=== PATIENT | female | born 1995 | race Caucasian/White ===

== ENCOUNTER → 2017-03-05 | Outpatient (CLI) | payer BC ==
[2017-03-05 13:28] LABS: BASO % 0.3 % (0.0-1.0); EOS # 0.1 10^3/uL (0.0-0.50); EOS % 0.9 % (0.0-3.0); IMMATURE GRANULOCYTE % 0.1 % (0-0); LYMPH # 1.5 10^3/uL (1.5-6.5); LYMPH % 21.8 % (24.0-44.0); MEAN CORPUSCULAR HEMOGLOBIN 31.8 pg (27.0-33.0); MEAN CORPUSCULAR HGB CONC 34.8 g/dl (32.0-36.5); MEAN CORPUSCULAR VOLUME 91.2 fl (80.0-96.0); MONO # 0.5 10^3/uL (0.0-0.8); MONO % 7.1 % (0.0-5.0); NEUTROPHILS # 4.8 10^3/uL (1.8-7.7); NEUTROPHILS % 69.8 % (36.0-66.0); PLATELET COUNT, AUTOMATED 177 10^3/uL (150-450); RED CELL DISTRIBUTION WIDTH 11.9 % (11.5-14.5); WHITE BLOOD COUNT 6.9 10^3/uL (4.0-10.0)
[2017-03-05 14:21] LABS: HBsAg Prenatal NEGATIVE (NEGATIVE)
== END ==
LOC: M SMT 09:00
PROVIDERS: ATTEND Advanced Practice Midwife
DX: Z3A.10 10 weeks gestation of pregnancy (principal)

== ENCOUNTER → 2017-04-30 | Outpatient (CLI) | payer BC ==
--- NOTE | 2017-04-30 10:24 | REP ---
Obstetric ultrasound for anatomy: There is a single intrauterine gestation in a breech presentation. There is movement. The heart rate is 144 beats per minute. The placenta is anterior. There is no placenta previa or abruptio. Placenta demonstrates grade zero maturity. The amniotic fluid volume subjectively is normal. The cervix measures 3.6 cm in length. Gestational Age: By LMP: 18 w 5.0 d the MARI 09/17/1928 By First US: None By Today's US: 18 w 6.0 d MARI 09/25/2017 Weight: 278 gm/ 0.0 lbs, 9.0 oz Wt% 65 % for 08:18 w 5.0 d The following anatomic structures are identified and are unremarkable: Intracranial lateral ventricles, cerebellum, cisterna magna, cavum septum pellucidum, face, facial profile, lungs, four-chamber heart, cardiac right and left ventricular outflow tracts, diaphragm, stomach, cord insertion, three-vessel cord, kidneys, bladder and upper lower extremities. Suboptimally demonstrated is the spine. There are bilateral choroid plexus cysts measuring approximate 3 mm in diameter. Followup study dedicated to the spine and choroid plexus might be considered. Otherwise, there are no anomalies. Signed by Joe Munoz MD 04/30/2017 10:16 A
== END ==
LOC: M SMT 08:07
PROVIDERS: ATTEND Specialist
DX: Z34.82 Encounter for supervision of other normal pregnancy, second trimester (principal)

== ENCOUNTER → 2017-05-15 | Outpatient (CLI) | payer BC | LOC: M SMT 09:02 | DX: Z34.82 Encounter for supervision of other normal pregnancy, second trimester (principal); Z3A.21 21 weeks gestation of pregnancy | CPT/HCPCS: 76816 ==

== ENCOUNTER → 2017-06-20 | Outpatient (REF) | payer BC | LOC: M LAB REF 17:21 | DX: J02.9 Acute pharyngitis, unspecified (principal) | CPT/HCPCS: 87081 ==

== ENCOUNTER → 2017-06-23 | Outpatient (CLI) | payer BC ==
[2017-06-23 13:33] LABS: HEMATOCRIT 38.4 % (36.0-47.0); MEAN CORPUSCULAR HEMOGLOBIN 32.3 pg (27.0-33.0); MEAN CORPUSCULAR HGB CONC 33.9 g/dl (32.0-36.5); MEAN CORPUSCULAR VOLUME 95.3 fl (80.0-96.0); PLATELET COUNT, AUTOMATED 152 10^3/uL (150-450); RED BLOOD COUNT 4.03 10^6/uL (4.00-5.40); RED CELL DISTRIBUTION WIDTH 12.6 % (11.5-14.5); WHITE BLOOD COUNT 13.5 10^3/uL (4.0-10.0)
[2017-06-23 13:55] LABS: GLUCOSE CHALLENGE TEST 1 HOUR 62 MG/DL (LESS THAN 140)
[2017-06-24 08:52] LABS: TYPE AND SCREEN 1 1
== END ==
LOC: M SMT 08:45
PROVIDERS: Pediatrics
DX: Z34.82 Encounter for supervision of other normal pregnancy, second trimester (principal)
CPT/HCPCS: 82950

== ENCOUNTER → 2017-08-29 | Outpatient (REF) | payer BC | LOC: M LAB REF 17:16 | DX: Z34.83 Encounter for supervision of other normal pregnancy, third trimester (principal) | CPT/HCPCS: 87081 ==

== ENCOUNTER 2017-09-16 04:42 | Inpatient (IN) | payer BC ==
[2017-09-16 05:45] LABS: HEMOGLOBIN 13.4 g/dl (12.0-15.5); MEAN CORPUSCULAR HGB CONC 34.4 g/dl (32.0-36.5); MEAN CORPUSCULAR VOLUME 90.3 fl (80.0-96.0); PLATELET COUNT, AUTOMATED 162 10^3/uL (150-450); RED BLOOD COUNT 4.32 10^6/uL (4.00-5.40); RED CELL DISTRIBUTION WIDTH 13.1 % (11.5-14.5); WHITE BLOOD COUNT 10.9 10^3/uL (4.0-10.0)
[2017-09-16] MEDS: LR 1,000 ML IV ×3 (07:54→19:53)
[2017-09-16] MEDS: OXYTOCIN DRIP 30 UNITS in APPROPRIATE DILUENT 1 EA IV ×2 (07:54→19:53)
[2017-09-16] MEDS ORDERED: FENTANYL 2MCG/ML ROPIVACAINE 0.2% IN 0.9% NACL 200ML IVBAG As Ordered (13:58)
[2017-09-16] MEDS ORDERED: LACTATED RINGER'S 1000 ML IV (15:30)
[2017-09-16] MEDS ORDERED: FENTANYL/ROPIVACAINE/NACL BAG 200 ML EPIDURAL (15:30)
[2017-09-16] MEDS ORDERED: ePHEDrine SULFATE 25 MG/5 ML(5MG/ML) SYRINGE IV (15:30)
[2017-09-16] MEDS ORDERED: diphenhydrAMINE INJ 50MG/ML VIAL (J1200) IV (15:30)
[2017-09-16] MEDS ORDERED: EPIDURAL/PCA KEYS XX (15:30)
[2017-09-16] MEDS ORDERED: ONDANSETRON 4MG/2ML VIAL (J2405) IV ×2 (15:30→17:30)
[2017-09-16] MEDS ORDERED: EPIDURAL COMMENT XX (15:30)
[2017-09-16] MEDS ORDERED: NALOXONE INJ 0.4 MG/1 ML VIAL (J2310) IV (15:30)
[2017-09-16] MEDS ORDERED: REFRIGERATOR IV KEYS XX (15:30)
[2017-09-16] MEDS ORDERED: ACETAMINOPHEN 500 MG TAB PO (17:30)
[2017-09-16] MEDS ORDERED: PROMETHAZINE 25 MG TAB PO (17:30)
[2017-09-17] MEDS: LR 1,000 ML IV (01:24)
[2017-09-17] MEDS: PRENATAL VITAMINS CHEWABLE TABLET PO (07:58)
[2017-09-17] MEDS: DOCUSATE SODIUM 100 MG CAP PO ×2 (07:58→19:51)
[2017-09-17] MEDS: IBUPROFEN 800 MG TAB PO (07:59)
[2017-09-17] MEDS: DIBUCAINE 1% OINTMENT 30GM TOP (19:51)
[2017-09-18] MEDS: MEASLES,MUMPS,RUBELLA VACCINE INJ (MMR-II) (90707) SC (02:26)
[2017-09-18] MEDS: RHOGAM 300 MCG (1500 IU) INJ (J2790) IM (02:26)
[2017-09-18] MEDS: PRENATAL VITAMINS CHEWABLE TABLET PO (07:56)
== END 2017-09-18 13:31 | disposition home or self-care (01) | DRG 560 ==
LOC: M LDO 04:42 → M LDI 05:02 → M OBS 19:01
PROC: 10E0XZZ Delivery of Products of Conception, External Approach (ICD-10-PCS; principal; 2017-09-16)
PROC: 0HQ9XZZ Repair Perineum Skin, External Approach (ICD-10-PCS; 2017-09-16)
DX: O70.0 First degree perineal laceration during delivery (principal); Z37.0 Single live birth; Z3A.38 38 weeks gestation of pregnancy

== ENCOUNTER → 2019-02-12 | Outpatient (CLI) | payer BC ==
[~2019-02-12] MED LIST: IBUP-1114 PO; MAPA500T2 PO; PRENTAB9 PO
[2019-02-12 15:24] LABS: BASO % 0.6 % (0.0-1.0); EOS # 0.1 10^3/uL (0.0-0.5); HEMATOCRIT 43.4 % (36.0-47.0); HEMOGLOBIN 14.5 g/dl (12.0-15.5); LYMPH # 1.6 10^3/uL (1.5-5.0); LYMPH % 29.7 % (24.0-44.0); MEAN CORPUSCULAR HEMOGLOBIN 31.7 pg (27.0-33.0); MEAN CORPUSCULAR HGB CONC 33.4 g/dl (32.0-36.5); MEAN CORPUSCULAR VOLUME 94.8 fl (80.0-96.0); MONO # 0.5 10^3/uL (0.0-0.8); MONO % 9.2 % (0.0-5.0); NEUTROPHILS # 3.1 10^3/uL (1.5-8.5); NEUTROPHILS % 59.3 % (36.0-66.0); PLATELET COUNT, AUTOMATED 159 10^3/uL (150-450); RED BLOOD COUNT 4.58 10^6/uL (4.00-5.40); WHITE BLOOD COUNT 5.2 10^3/uL (4.0-10.0)
[2019-02-12 18:21] LABS: HEPATITIS C VIRUS ABY INDEX 0.1 INDEX (<0.8); HIV 1&2 SCREEN CENTAUR NEGATIVE (NEGATIVE); RUBELLA IgG QUALITATIVE IMMUNE (IMMUNE)
== END ==
LOC: M SMT 09:10
PROVIDERS: ATTEND Advanced Practice Midwife
DX: Z34.81 Encounter for supervision of other normal pregnancy, first trimester (principal); Z3A.00 Weeks of gestation of pregnancy not specified

== ENCOUNTER → 2019-03-12 | Outpatient (REF) | payer BC ==
[2019-03-12 12:58] LABS: CHLAMYDIA DNA AMPLIFICATION NEGATIVE (NEGATIVE); GC DNA AMPLIFICATION NEGATIVE (NEGATIVE)
== END ==
LOC: M LAB REF 10:37
PROVIDERS: ATTEND Advanced Practice Midwife
DX: Z34.81 Encounter for supervision of other normal pregnancy, first trimester (principal)

== ENCOUNTER 2019-03-30 18:26 | Emergency (ER) | payer BC ==
[~2019-03-30] VITALS: Ht 167.6 cm; Wt 61.4 kg
[2019-03-30 19:39] LABS: BASO # 0.1 10^3/uL (0.0-0.2); BASO % 0.5 % (0.0-1.0); EOS # 0.1 10^3/uL (0.0-0.5); EOS % 0.9 % (0.0-3.0); HEMATOCRIT 39.3 % (36.0-47.0); HEMOGLOBIN 13.5 g/dl (12.0-15.5); LYMPH # 2.5 10^3/uL (1.5-5.0); LYMPH % 24.5 % (24.0-44.0); MEAN CORPUSCULAR HEMOGLOBIN 31.5 pg (27.0-33.0); MEAN CORPUSCULAR HGB CONC 34.4 g/dl (32.0-36.5); MEAN CORPUSCULAR VOLUME 91.8 fl (80.0-96.0); MONO # 0.6 10^3/uL (0.0-0.8); MONO % 5.9 % (0.0-5.0); NEUTROPHILS # 6.9 10^3/uL (1.5-8.5); NEUTROPHILS % 67.8 % (36.0-66.0); PLATELET COUNT, AUTOMATED 167 10^3/uL (150-450); RED BLOOD COUNT 4.28 10^6/uL (4.00-5.40); WHITE BLOOD COUNT 10.1 10^3/uL (4.0-10.0)
[2019-03-30 20:20] LABS: BLOOD UREA NITROGEN 10 MG/DL (7-18); CALCIUM LEVEL 8.9 MG/DL (8.5-10.1); CARBON DIOXIDE LEVEL 25 MEQ/L (21-32); CHLORIDE LEVEL 106 MEQ/L (98-107); CREATININE FOR GFR 0.52 MG/DL (0.55-1.30); GLOMERULAR FILTRATION RATE > 60.0 (>60); GLUCOSE, FASTING 85 MG/DL (70-100); HCG, SERUM QUANTITATIVE 38032 MIU/ML; POTASSIUM SERUM 3.8 MEQ/L (3.5-5.1); SODIUM LEVEL 138 MEQ/L (136-145)
--- NOTE | 2019-03-30 21:06 | REPVR ---
PROCEDURE INFORMATION: Exam: US First Trimester, Transabdominal Exam date and time: 03/30/2019 8:19 PM Clinical history: 24 years old, female; Lmp or gestational age (in weeks): 12/20/18; Antepartum complications; Bleeding; ; Additional info: Vaginal bleeding TECHNIQUE: Imaging protocol: Real-time transabdominal obstetrical ultrasound of the maternal pelvis and a first trimester , less than 14 weeks 0 days, with image documentation. COMPARISON: US OBS FOLL UP OR REPEAT EACH GES 06/23/2017 2:59 PM FINDINGS: Single intrauterine in variable presentation. Placenta is left lateral and free of the cervical os. Cervix measures 4.1 cm in length and is closed. cardiac activity is identified with a heart rate of 155 beats/min. Amniotic fluid volume is qualitatively normal. measurements correspond to an estimated gestational age of 15 weeks 1 day. Estimated weight is 111 g . EFW percentile is 71 %. IMPRESSION: Single IUP with measurements corresponding to an EGA of approximately 15 weeks 1 day. No apparent complication explanation for hemorrhage Electronically signed by: Dwaine Martínez On 03/30/2019 21:06:04 PM
[2019-03-30] MEDS ORDERED: RHOGAM 300 MCG (1500 IU) INJ (J2790) IM ONE (21:30)
[2019-03-30 22:20] VITALS: BP 113/63
== END 2019-03-30 22:21 | disposition home or self-care (01) ==
LOC: M ED 18:26
DX: O20.9 Hemorrhage in early pregnancy, unspecified (principal); Z3A.15 15 weeks gestation of pregnancy
CPT/HCPCS: 36415; 76811; 80048; 81001; 84702; 85025; 86850; 86900; 86901; 96372; 99284; J2790

== ENCOUNTER → 2019-06-10 | Outpatient (CLI) | payer BC ==
--- NOTE | 2019-06-11 04:12 | REP ---
Clinical: Anatomical evaluation. Comparison: 03/30/2019 . Findings: Examination demonstrates a single live intrauterine in breech presentation. motion is identified by technologist. Placenta is noted posterior and grade zero without evidence for placenta previa or abruption. Amniotic fluid volume is normal. Cervix measures 3.1 cm in length and appears closed. No evidence for nuchal cord. Gestational age by LMP 24 weeks 4 days with MARI 09/26/2019 . Gestational age by current measurements 24 weeks 0 days with MARI 09/30/2019 . FHR equals 136 beats per minute. Estimated weight 684 grams ( 36th percentile). Anatomical assessment demonstrates normal images of the spine. Impression: Single live intrauterine in breech presentation demonstrating appropriate interval growth.
== END ==
LOC: M WHC 08:00
PROVIDERS: ATTEND Obstetrics & Gynecology
DX: Z36.89 Encounter for other specified antenatal screening (principal); Z3A.24 24 weeks gestation of pregnancy

== ENCOUNTER → 2019-06-28 | Outpatient (CLI) | payer BC ==
[2019-06-28 17:33] LABS: HEMOGLOBIN 13.2 g/dl (12.0-15.5); MEAN CORPUSCULAR HEMOGLOBIN 31.5 pg (27.0-33.0); MEAN CORPUSCULAR HGB CONC 32.2 g/dl (32.0-36.5); MEAN CORPUSCULAR VOLUME 97.9 fl (80.0-96.0); PLATELET COUNT, AUTOMATED 143 10^3/uL (150-450); RED BLOOD COUNT 4.19 10^6/uL (4.00-5.40); WHITE BLOOD COUNT 9.5 10^3/uL (4.0-10.0)
== END ==
LOC: M PLALAB 13:15
PROVIDERS: ATTEND Obstetrics & Gynecology
DX: Z36.89 Encounter for other specified antenatal screening (principal)

== ENCOUNTER → 2019-07-01 | Outpatient (REF) | payer BC | LOC: M LAB REF 12:24 | PROVIDERS: ATTEND Obstetrics & Gynecology | DX: Z34.82 Encounter for supervision of other normal pregnancy, second trimester (principal) ==

== ENCOUNTER → 2019-08-26 | Outpatient (REF) | payer BC | LOC: M LAB REF 12:10 | PROVIDERS: ATTEND Obstetrics & Gynecology | DX: Z34.83 Encounter for supervision of other normal pregnancy, third trimester (principal) ==

== ENCOUNTER 2019-09-17 01:46 | Inpatient (IN) | payer BC ==
[2019-09-17] VITALS (33 sets, daily range): BP systolic 72–124; BP diastolic 38–80
[~2019-09-17] VITALS: Ht 167.6 cm; Wt 82.0 kg
[2019-09-17] MEDS ORDERED: LR 1,000 ML IV SCH (03:03)
[2019-09-17] MEDS ORDERED: LACTATED RINGER'S 1000 ML IV STA (03:03)
[2019-09-17] MEDS ORDERED: PRENTAB9 PO (03:17)
[2019-09-17] MEDS ORDERED: FENTANYL 2MCG/ML ROPIVACAINE 0.2% IN 0.9% NACL 100ML IVBAG As Ordered ONE (03:32)
[2019-09-17 03:35] LABS: HEMATOCRIT 39.6 % (36.0-47.0); HEMOGLOBIN 13.7 g/dl (12.0-15.5); MEAN CORPUSCULAR HEMOGLOBIN 31.3 pg (27.0-33.0); MEAN CORPUSCULAR HGB CONC 34.6 g/dl (32.0-36.5); MEAN CORPUSCULAR VOLUME 90.4 fl (80.0-96.0); PLATELET COUNT, AUTOMATED 139 10^3/uL (150-450); RED BLOOD COUNT 4.38 10^6/uL (4.00-5.40); WHITE BLOOD COUNT 13.8 10^3/uL (4.0-10.0)
[2019-09-17] MEDS ORDERED: OXYTOCIN 30 UNITS IN 0.9% NaCl 500ML IV BAG (J2590) As Ordered ONE (04:27)
[2019-09-17] MEDS ORDERED: diphenhydrAMINE 50MG/ML VIAL (J1200) IV PRN (04:29)
[2019-09-17] MEDS ORDERED: LACTATED RINGER'S 1000 ML IV PRN (04:29)
[2019-09-17] MEDS ORDERED: REFRIGERATOR IV KEYS XX PRN (04:29)
[2019-09-17] MEDS ORDERED: EPIDURAL COMMENT XX SCH (04:29)
[2019-09-17] MEDS ORDERED: NALOXONE INJ 0.4MG/1ML VIAL (J2310 PER 1MG) IV PRN (04:29)
[2019-09-17] MEDS ORDERED: FENTANYL/ROPIVACAINE/NACL BAG 100 ML EPIDURAL SCH (04:29)
[2019-09-17] MEDS ORDERED: ONDANSETRON 4MG/2ML VIAL IV PRN (04:29)
[2019-09-17] MEDS ORDERED: EPIDURAL/PCA KEYS XX PRN (04:29)
[2019-09-17] MEDS: ePHEDrine SULFATE 25 MG/5 ML(5MG/ML) SYRINGE IV PRN ×2 (05:32→06:10)
[2019-09-17] MEDS ORDERED: OXYTOCIN DRIP IV SCH (06:15)
[2019-09-17] MEDS ORDERED: OXYTOCIN DRIP 30 UNITS in IV 1 EA IV SCH ×2 (06:30→07:54)
[2019-09-17 07:34] LABS: CORD GAS ABE V -2.6; CORD GAS HCO3 V 21.6 MEQ/L; CORD GAS O2 SAT V 82.5 %; CORD GAS PH V 7.396 UNITS; CORD GAS PO2 V 38.9 mmHg; CORD GAS TCO2 V 22.7 MEQ/L
[2019-09-17 07:37] LABS: CORD GAS ABE A -0.5; CORD GAS HCO3 A 27.6 MEQ/L; CORD GAS O2 SAT A 22.6 %; CORD GAS PCO2 A 59.2 mmHg; CORD GAS PH A 7.287 UNITS; CORD GAS PO2 A 14.6 mmHg; CORD GAS SBC A 22.1 MEQ/L; CORD GAS TCO2 A 29.5 MEQ/L
[2019-09-17] MEDS ORDERED: MEASLES,MUMPS,RUBELLA VACCINE INJ (MMR-II) (90707) SC SCH (08:00)
[2019-09-17] MEDS ORDERED: DIBUCAINE 1% OINTMENT 30GM TOP PRN (08:00)
[2019-09-17] MEDS ORDERED: IBUPROFEN 800 MG TAB PO PRN (08:00)
[2019-09-17] MEDS ORDERED: ACETAMINOPHEN 500 MG TAB PO PRN (08:00)
[2019-09-17] MEDS ORDERED: DOCUSATE SODIUM 100 MG CAP PO PRN (08:00)
[2019-09-17] MEDS ORDERED: IBUPROFEN 600 MG TAB PO PRN (08:00)
[2019-09-17] MEDS ORDERED: METHYLERGONOVINE MALEATE 0.2 MG TAB PO PRN (08:00)
[2019-09-17] MEDS ORDERED: ANUSOL HC CREAM 30GM TOP PRN (08:00)
[2019-09-17] MEDS ORDERED: ACETAMINOPHEN TAB 650MG DOSE (2X325MG) PO PRN (08:00)
[2019-09-17] MEDS ORDERED: RHOGAM 300 MCG (1500 IU) INJ (J2790) IM SCH (08:00)
[2019-09-17] MEDS: PRENATAL VITAMINS CHEWABLE TABLET PO SCH (09:00)
--- NOTE | 2019-09-17 15:34 | HPE ---
DATE OF ADMISSION: 09/17/2019 Shantell is a 24-year-old female, 2, para 1-0-0-1, who is admitted at 38-4/7 weeks gestation, in active labor. Upon admission no bleeding, no leakage of fluid. Contractions every 3-4 minutes. record reviewed, essentially unremarkable. lab - blood type is A negative, rubella immune, hepatitis negative, HIV negative. GC, chlamydia negative. 1-hour sugar testing was within normal limit. Her GBS is negative. PAST MEDICAL HISTORY: Denies. PAST SURGICAL HISTORY: Denies. SOCIAL HISTORY: She denies any alcohol, drug or cigarette smoking. REVIEW OF SYSTEMS: Unremarkable. FAMILY HISTORY: Significant for ovarian cancer and pulmonary disease. MEDICATIONS: - vitamin ALLERGIES: NO KNOWN DRUG ALLERGY. PHYSICAL EXAMINATION: Normal-appearing female in no acute distress. Abdomen: Soft, nontender, nondistended. Extremities: No clubbing, cyanosis or edema. Vaginal Exam: 6 cm dilated, 100% effaced, fetus at -2 station, vertex position. Tracing reviewed. Category 1 tracing. ASSESSMENT: Intrauterine at 38-4/7 weeks gestation, in active labor. PLAN: Admit to labor and delivery. Routine labs sent. Pain management discussed. The patient opt for an epidural. Will continue to monitor. Anticipate delivery.
[2019-09-18 05:30] VITALS: BP 107/64
[2019-09-18] MEDS: PRENATAL VITAMINS CHEWABLE TABLET PO SCH (07:33)
== END 2019-09-18 19:45 | disposition home or self-care (01) | DRG 560 ==
LOC: M LDO 01:46 → M LDI 03:06 → M OBS 10:12
PROVIDERS: ADMIT Obstetrics & Gynecology; ATTEND Obstetrics & Gynecology
PROC: 10E0XZZ Delivery of Products of Conception, External Approach (ICD-10-PCS; principal; 2019-09-17)
DX: O69.2XX0 Labor and delivery complicated by other cord entanglement, with compression, not applicable or unspecified (principal); Z3A.38 38 weeks gestation of pregnancy; Z37.0 Single live birth

== ENCOUNTER → 2020-10-26 | Outpatient (REF) | payer OTHER ==
[2020-10-26 14:20] LABS: HEMATOCRIT 46.3 % (36.0-47.0); HEMOGLOBIN 15.4 g/dl (12.0-15.5); MEAN CORPUSCULAR HEMOGLOBIN 31.4 pg (27.0-33.0); MEAN CORPUSCULAR HGB CONC 33.3 g/dl (32.0-36.5); MEAN CORPUSCULAR VOLUME 94.5 fl (80.0-96.0); PLATELET COUNT, AUTOMATED 180 10^3/uL (150-450); WHITE BLOOD COUNT 5.7 10^3/uL (4.0-10.0)
[2020-10-26 15:34] LABS: ALBUMIN 4.1 GM/DL (3.2-5.2); ALT/SGPT 16 U/L (12-78); BILIRUBIN,TOTAL 0.7 MG/DL (0.2-1.0); BLOOD UREA NITROGEN 10 MG/DL (7-18); CALCIUM LEVEL 8.7 MG/DL (8.5-10.1); CARBON DIOXIDE LEVEL 26 MEQ/L (21-32); CHLORIDE LEVEL 107 MEQ/L (98-107); CREATININE FOR GFR 0.65 MG/DL (0.55-1.30); FREE T4 1.12 NG/DL (0.76-1.46); GLOMERULAR FILTRATION RATE > 60.0 (>60); GLUCOSE, FASTING 72 MG/DL (70-100); POTASSIUM SERUM 4.4 MEQ/L (3.5-5.1); SODIUM LEVEL 139 MEQ/L (136-145); TOTAL PROTEIN 7.6 GM/DL (6.4-8.2)
== END ==
LOC: M SFHCADAM 12:09
PROVIDERS: ATTEND Physician Assistant
DX: R07.89 Other chest pain (principal); Z79.3 Long term (current) use of hormonal contraceptives; F41.9 Anxiety disorder, unspecified

== ENCOUNTER 2021-07-24 12:00 | Emergency (ER) | payer OTHER ==
[~2021-07-24] VITALS: Ht 170.2 cm; Wt 54.5 kg
[2021-07-24 14:19] LABS: BASO # 0.1 10^3/uL (0.0-0.2); BASO % 0.7 % (0.0-1.0); EOS # 0.1 10^3/uL (0.0-0.5); EOS % 0.7 % (0.0-3.0); HEMATOCRIT 41.9 % (36.0-47.0); HEMOGLOBIN 14.1 g/dl (12.0-15.5); LYMPH # 1.7 10^3/uL (1.5-5.0); LYMPH % 24.8 % (24.0-44.0); MEAN CORPUSCULAR HGB CONC 33.7 g/dl (32.0-36.5); MEAN CORPUSCULAR VOLUME 92.1 fl (80.0-96.0); MONO # 0.4 10^3/uL (0.0-0.8); NEUTROPHILS # 4.7 10^3/uL (1.5-8.5); NEUTROPHILS % 67.5 % (36.0-66.0); PLATELET COUNT, AUTOMATED 185 10^3/uL (150-450); RED BLOOD COUNT 4.55 10^6/uL (4.00-5.40)
[2021-07-24 14:41] LABS: ERYTHROCYTE SEDIMENTATION RATE 3 mm/hr (0-20)
[2021-07-24 14:55] LABS: HCG, SERUM QUALITATIVE NEGATIVE (NEGATIVE)
[2021-07-24 14:59] LABS: ALBUMIN 4.2 GM/DL (3.2-5.2); ALT/SGPT 22 U/L (12-78); BILIRUBIN,TOTAL 0.7 MG/DL (0.2-1.0); BLOOD UREA NITROGEN 12 MG/DL (7-18); CARBON DIOXIDE LEVEL 28 MEQ/L (21-32); CHLORIDE LEVEL 109 MEQ/L (98-107); CREATININE FOR GFR 0.65 MG/DL (0.55-1.30); FREE T4 1.16 NG/DL (0.76-1.46); GLOMERULAR FILTRATION RATE > 60.0 (>60); GLUCOSE, FASTING 101 MG/DL (70-100); POTASSIUM SERUM 3.6 MEQ/L (3.5-5.1); SODIUM LEVEL 142 MEQ/L (136-145); THYROID STIMULATING HORMONE 0.712 uIU/ML (0.358-3.740); TOTAL PROTEIN 7.6 GM/DL (6.4-8.2)
[2021-07-24] MEDS ORDERED: KETOROLAC 30 MG/ML 1ML VIAL IV ONE (15:05)
[2021-07-24] MEDS ORDERED: ONDANSETRON 4MG/2ML VIAL IV ONE (15:05)
[2021-07-24] MEDS ORDERED: NS 1,000 ML IV ONE (15:05)
[2021-07-24] MEDS ORDERED: IMIT50TA PO (17:16)
[2021-07-24 17:25] VITALS: BP 107/60
[2021-07-26 17:10] LABS: Lyme Disease IgG/IgM Antibodie <0.91 ISR (0.00-0.90); Lyme Disease IgM Ab Quantitati <0.80 index (0.00-0.79)
== END 2021-07-24 17:26 | disposition home or self-care (01) ==
LOC: M ED 12:00
DX: R51.9 Headache, unspecified (principal); R20.2 Paresthesia of skin; Z73.3 Stress, not elsewhere classified; I73.00 Raynaud's syndrome without gangrene; Z86.16 Personal history of COVID-19
CPT/HCPCS: 70450; 72125; 80053; 84439; 84443; 84703; 85025; 85652; 86140; 86617; 93005; 96361; 96374; 96375; 99284; J1885; J2405

== ENCOUNTER → 2022-02-27 | Outpatient (REF) | payer OTHER ==
[~2022-02-27] MED LIST changes: +IMIT50TA PO
[2022-02-27 18:03] LABS: C REACTIVE PROTEIN QUANTITATIV < 0.30 MG/DL (0.00-0.30); RHEUMATOID FACTOR QUANT < 10.0 IU/ML (<15.0)
[2022-03-01 21:10] LABS: ANA (HEP2) Positive (.)
== END ==
LOC: M SFHCADAM 13:36
PROVIDERS: ATTEND Physician Assistant
DX: S96.912A Strain of unspecified muscle and tendon at ankle and foot level, left foot, initial encounter (principal); X58.XXXA Exposure to other specified factors, initial encounter; Y92.9 Unspecified place or not applicable; Y93.9 Activity, unspecified; Y99.9 Unspecified external cause status

== ENCOUNTER → 2022-03-12 | Outpatient (CLI) | payer OTHER | LOC: M ADAMS 14:02 | PROVIDERS: ATTEND Physician Assistant | DX: S96.912A Strain of unspecified muscle and tendon at ankle and foot level, left foot, initial encounter (principal); X58.XXXA Exposure to other specified factors, initial encounter; Y92.9 Unspecified place or not applicable; Y93.9 Activity, unspecified; Y99.9 Unspecified external cause status ==

== ENCOUNTER → 2022-05-27 | Outpatient (REF) | payer OTHER ==
[2022-05-27 14:31] LABS: RSV AMPLIFICATION POSITIVE (NEGATIVE)
== END ==
LOC: M LAB REF 12:52
PROVIDERS: ATTEND Physician Assistant
DX: R05.9 Cough, unspecified (principal)

== ENCOUNTER → 2022-08-02 | Outpatient (REF) | payer OTHER | LOC: M LAB REF 11:26 | PROVIDERS: ATTEND Physician Assistant Medical | DX: H60.8X2 Other otitis externa, left ear (principal) ==

== ENCOUNTER → 2023-07-04 | Outpatient (REF) | payer OTHER | LOC: M LAB REF 11:46 | PROVIDERS: ATTEND Nurse Practitioner Family | DX: R30.0 Dysuria (principal) ==

== ENCOUNTER → 2024-12-21 | Outpatient (REF) | payer OTHER ==
[2024-12-21 13:58] LABS: CALCIUM LEVEL 8.5 MG/DL (8.5-10.1); CARBON DIOXIDE LEVEL 26 MMOL/L (20-31); CHLORIDE LEVEL 104 MMOL/L (98-107); CREATININE FOR GFR 0.58 MG/DL (0.55-1.30); GLOMERULAR FILTRATION RATE > 90.0 (>60); POTASSIUM SERUM 3.8 MMOL/L (3.5-5.1); SODIUM LEVEL 141 MMOL/L (136-145)
== END ==
LOC: M SFHCADAM 10:47
PROVIDERS: ATTEND Physician Assistant
DX: R76.8 Other specified abnormal immunological findings in serum (principal)